=== PATIENT | male | born 1950 | race Caucasian/White ===

== ENCOUNTER 2022-08-20 19:21 | Inpatient (IN) | payer MEDICARE, OTHER ==
[2022-08-20] MEDS ORDERED: Aspirin Chewable 81 MG TAB ONE (20:00)
[2022-08-20] MEDS ORDERED: Furosemide 40 MG/4 ML VIAL ONE (20:00)
[2022-08-20] MEDS ORDERED: Diltiazem 125 MG/25 ML ONE (20:00)
[2022-08-20 20:23] LABS: #Basophils 0.1 thou/uL (0.0-0.2); #Eosinphils 0.2 thou/uL (0.0-0.7); #Lymphocytes 1.7 thou/uL (1.20-3.40); #Neutrophils 5.7 thou/uL (1.40-6.50); %Eosinophils 2.3 % (0.0-10.0); %Monocytes 11.9 % (0.0-10.0); %Neutrophils 65.9 % (42.0-75.0); Hemoglobin 15.5 g/dL (14.0-18.0); Mean Corpuscular HGB CONC 33.4 g/dL (32.0-36.0); Mean Corpuscular Hemoglobin 29.1 pg (27.0-31.0); Mean Corpuscular Volume 87.1 fl (78.0-98.0); Mean Platelet Volume 9.5 fL (7.4-10.4); Platelet Count 188 10x3/uL (130-400); RBC Distribution Width 13.5 % (11.5-14.5); Red Blood Cell (RBC) Count 5.34 mill/uL (4.70-6.10); White Blood Cell (WBC) Count 8.7 10x3/uL (4.8-10.8)
[2022-08-20 20:44] LABS: ALT (SGPT) 9 U/L (8-55); AST (SGOT) 15 U/L (5-34); Albumin 3.8 g/dL (3.4-4.8); Alkaline Phosphatase 76 U/L (40-110); Anion Gap 15 mmol/L (10-20); BUN (Urea Nitrogen) 28 mg/dL (8.4-25.7); Calc. Creatinine Clearance 0 mL/min (70-130); Calcium 9.5 mg/dL (7.8-10.44); Carbon Dioxide 20 mmol/L (23-31); Chloride 106 mmol/L (98-107); Estimated GFR 31; Globulin 3.4 g/dL (2.4-3.5); Glucose 251 mg/dL (80-115); Potassium 4.5 mmol/L (3.5-5.1); Protein, Total 7.2 g/dL (5.8-8.1); Sodium 136 mmol/L (136-145)
[2022-08-20] MEDS ORDERED: Digoxin 0.5 MG/2 ML AMP ONE (21:32)
[2022-08-20] MEDS ORDERED: Amiodarone 150 MG/3 ML VIAL ONE (22:17)
[2022-08-20 23:07] LABS: SARS-CoV-2 NAA Rapid Test Not Detected (NotDetected)
[2022-08-21] MEDS ORDERED: Electrolyte Replacement Protocol 1 EACH IVPB PRN (00:34)
[2022-08-21] MEDS ORDERED: Ondansetron ODT 4 MG TAB PO PRN (00:36)
[2022-08-21] MEDS ORDERED: Calcium Carbonate 500 MG ChewTAB PO PRN (00:36)
[2022-08-21 00:41] LABS: Troponin I 0.015 ng/mL (< 0.028)
[2022-08-21] MEDS ORDERED: Diltiazem 125 MG in Sodium Chloride 0.9% 100 ML IVPB SCH (00:45)
[2022-08-21 01:04] VITALS: BMI 26.2
[2022-08-21 02:51] LABS: Bacteria/HPF None Seen HPF (None Seen); Bilirubin Negative (Negative); Blood, Urine Negative (Negative); Clarity Clear (Clear); Glucose, Urine (Dipstick) 30 mg/dL (Negative); Ketone, Urine Negative (Negative); Leukocyte Negative Leu/uL (Negative); Nitrite Negative (Negative); Protein, Urine (Dipstick) 20 mg/dL (Neg-Trace); RBC/HPF 0-3 HPF (0-3); Specific Gravity, Urine 1.011 (1.002-1.036); Squamous Epithelial 0-3 HPF (0-3); Urobilinogen Normal mg/dL (Less than 2)
[2022-08-21 04:33] LABS: Anion Gap 17 mmol/L (10-20); BUN (Urea Nitrogen) 28 mg/dL (8.4-25.7); Calc. Creatinine Clearance 33 mL/min (70-130); Calcium 9.1 mg/dL (7.8-10.44); Carbon Dioxide 18 mmol/L (23-31); Chloride 105 mmol/L (98-107); Estimated GFR 30; Glucose 212 mg/dL (80-115); Potassium 4.8 mmol/L (3.5-5.1); Sodium 135 mmol/L (136-145)
[2022-08-21 04:38] LABS: Troponin I 0.019 ng/mL (< 0.028)
[2022-08-21] MEDS ORDERED: Furosemide 40 MG/4 ML VIAL SLOW IVP SCH (09:00)
[2022-08-21] MEDS ORDERED: HumaLOG 300 UNITS/3 ML VIAL SC PRN (10:00)
[2022-08-21] MEDS: Famotidine 20 MG TAB PO SCH (10:02)
[2022-08-21] MEDS: Apixaban 5 MG TAB PO SCH ×2 (10:02→10:34)
[2022-08-21] MEDS ORDERED: Dextrose 5% in Water 1,000 ML IV PRN (10:15)
[2022-08-21] MEDS ORDERED: Insulin Glargine 30 UNITS/0.3 ML VIAL SC SCH (10:15)
[2022-08-21] MEDS ORDERED: Dextrose 50% Abboject 50 ML SYRINGE IVP PRN (10:15)
[2022-08-21] MEDS: HumaLOG 300 UNITS/3 ML VIAL SC PRN (12:40)
[2022-08-21] MEDS ORDERED: Ketamine 50 MG/ML (10ML VIAL) ONE (16:03)
[2022-08-21] MEDS ORDERED: PROPOFOL 20 ML ONE (16:03)
[2022-08-21] MEDS ORDERED: PHENYLEPHRINE-NS 100 MCG/ML 10 ML SYRINGE ONE (16:15)
[2022-08-21] MEDS ORDERED: Lidocaine 1% PF 5 ML VIAL ONE (16:15)
[2022-08-21] MEDS ORDERED: ePHEDrine 50 MG/ML VIAL ONE (16:15)
[2022-08-21] MEDS ORDERED: PROPOFOL 200 MG/20 ML VIAL ONE (16:15)
[2022-08-21] MEDS ORDERED: NOREPINEPHRINE 8 MG/250 ML-D5W 250 ML IVPB SCH (17:00)
[2022-08-21] MEDS: Amiodarone 450 MG, Admixture Fee 1 EACH in Dextrose 5% in Water 250 ML IVPB SCH (19:44)
[2022-08-22] MEDS: HYDROcodone/Acetaminophen 5/325 mg Tablet PO PRN ×4 (00:25→21:17)
[2022-08-22] MEDS: HumaLOG 300 UNITS/3 ML VIAL SC PRN ×4 (00:30→17:00)
[2022-08-22] MEDS: Amiodarone 450 MG, Admixture Fee 1 EACH in Dextrose 5% in Water 250 ML IVPB SCH (04:10)
[2022-08-22 04:53] LABS: #Basophils 0.1 thou/uL (0.0-0.2); #Eosinphils 0.2 thou/uL (0.0-0.7); #Lymphocytes 1.3 thou/uL (1.20-3.40); #Monocytes 1.1 thou/uL (0.11-0.59); #Neutrophils 5.1 thou/uL (1.40-6.50); %Basophils 0.6 % (0.0-1.0); %Lymphocytes 17.2 % (21.0-51.0); %Monocytes 13.8 % (0.0-10.0); %Neutrophils 66.3 % (42.0-75.0); Hemoglobin 14.2 g/dL (14.0-18.0); Mean Corpuscular HGB CONC 32.5 g/dL (32.0-36.0); Mean Corpuscular Hemoglobin 29.4 pg (27.0-31.0); Mean Corpuscular Volume 90.4 fl (78.0-98.0); Mean Platelet Volume 9.4 fL (7.4-10.4); Platelet Count 147 10x3/uL (130-400); RBC Distribution Width 13.5 % (11.5-14.5); Red Blood Cell (RBC) Count 4.85 mill/uL (4.70-6.10); White Blood Cell (WBC) Count 7.8 10x3/uL (4.8-10.8)
[2022-08-22 04:54] LABS: ALT (SGPT) 7 U/L (8-55); AST (SGOT) 10 U/L (5-34); Albumin 3.2 g/dL (3.4-4.8); Alkaline Phosphatase 60 U/L (40-110); Anion Gap 13 mmol/L (10-20); BUN (Urea Nitrogen) 33 mg/dL (8.4-25.7); Bilirubin, Total 0.9 mg/dL (0.2-1.2); Calc. Creatinine Clearance 35 mL/min (70-130); Calcium 8.3 mg/dL (7.8-10.44); Carbon Dioxide 18 mmol/L (23-31); Chloride 106 mmol/L (98-107); Estimated GFR 33; Globulin 2.9 g/dL (2.4-3.5); Glucose 192 mg/dL (80-115); Potassium 4.3 mmol/L (3.5-5.1); Protein, Total 6.1 g/dL (5.8-8.1); Sodium 133 mmol/L (136-145)
[2022-08-22] MEDS: Amiodarone 200 MG TAB PO SCH ×2 (08:52→21:18)
[2022-08-22] MEDS: Famotidine 20 MG TAB PO SCH (08:53)
[2022-08-22 09:25] LABS: Magnesium 1.8 mg/dL (1.6-2.6)
[2022-08-22] MEDS ORDERED: Amiodarone 450 MG, Admixture Fee 1 EACH in Dextrose 5% in Water 250 ML IVPB SCH (09:45)
[2022-08-22] MEDS: Insulin Glargine 30 UNITS/0.3 ML VIAL SC SCH (09:49)
[2022-08-22] MEDS ORDERED: Magnesium 2 GM/50 ML(in water) 2 GM in Premix Bag 1 BAG IVPB SCH (10:00)
[2022-08-22] MEDS: Milrinone Lactate/D5W 20 MG in Premix Bag 1 BAG IV SCH (11:36)
[2022-08-22] MEDS: Furosemide 40 MG/4 ML VIAL SLOW IVP SCH (14:14)
[2022-08-22] MEDS: Atorvastatin Calcium 20 MG TAB PO SCH (21:19)
[2022-08-23] MEDS: Milrinone Lactate/D5W 20 MG in Premix Bag 1 BAG IV SCH ×3 (01:51→23:00)
[2022-08-23] MEDS: HYDROcodone/Acetaminophen 5/325 mg Tablet PO PRN ×2 (01:54→08:48)
[2022-08-23 04:56] LABS: Anion Gap 12 mmol/L (10-20); BUN (Urea Nitrogen) 34 mg/dL (8.4-25.7); Calc. Creatinine Clearance 39 mL/min (70-130); Calcium 8.4 mg/dL (7.8-10.44); Carbon Dioxide 20 mmol/L (23-31); Chloride 104 mmol/L (98-107); Estimated GFR 37; Glucose 143 mg/dL (80-115); Potassium 4.1 mmol/L (3.5-5.1); Sodium 132 mmol/L (136-145)
[2022-08-23] MEDS: Furosemide 40 MG/4 ML VIAL SLOW IVP SCH (06:07)
[2022-08-23] MEDS: Famotidine 20 MG TAB PO SCH (08:49)
[2022-08-23] MEDS: Amiodarone 200 MG TAB PO SCH ×2 (08:49→20:38)
[2022-08-23] MEDS: Insulin Glargine 30 UNITS/0.3 ML VIAL SC SCH (08:50)
[2022-08-23] MEDS ORDERED: Apixaban 5 MG TAB PO SCH (09:45)
[2022-08-23] MEDS ORDERED: Magnesium 2 GM/50 ML(in water) 2 GM in Premix Bag 1 BAG IVPB SCH (11:00)
[2022-08-23] MEDS: HumaLOG 300 UNITS/3 ML VIAL SC PRN (12:33)
[2022-08-23] MEDS: HYDROcodone/Acetaminophen 5/325 mg Tablet PO SCH ×2 (17:52→20:38)
[2022-08-23] MEDS: Cefepime 1 GM in Sodium Chloride 0.9% 100 ML IVPB SCH (17:52)
[2022-08-23] MEDS: Pregabalin 75 MG CAP PO SCH (20:37)
[2022-08-23] MEDS: Atorvastatin Calcium 20 MG TAB PO SCH (20:38)
[2022-08-23] MEDS: Apixaban 5 MG TAB PO SCH (20:38)
[2022-08-24] MEDS: HYDROcodone/Acetaminophen 5/325 mg Tablet PO SCH ×6 (00:55→22:13)
[2022-08-24 04:41] LABS: Anion Gap 12 mmol/L (10-20); BUN (Urea Nitrogen) 38 mg/dL (8.4-25.7); Calc. Creatinine Clearance 41 mL/min (70-130); Calcium 8.6 mg/dL (7.8-10.44); Carbon Dioxide 21 mmol/L (23-31); Chloride 103 mmol/L (98-107); Estimated GFR 39; Glucose 131 mg/dL (80-115); Potassium 3.8 mmol/L (3.5-5.1); Sodium 132 mmol/L (136-145)
[2022-08-24] MEDS: Cefepime 1 GM in Sodium Chloride 0.9% 100 ML IVPB SCH ×2 (06:07→17:10)
[2022-08-24] MEDS ORDERED: Magnesium 2 GM/50 ML(in water) 2 GM in Premix Bag 1 BAG IVPB SCH (08:00)
[2022-08-24] MEDS ORDERED: FLU VACC QS2022-23(65YR UP)/PF 240 MCG/0.7 ML SYRINGE IM ONE (09:00)
[2022-08-24] MEDS ORDERED: Furosemide 40 MG/4 ML VIAL SLOW IVP SCH (09:00)
[2022-08-24] MEDS ORDERED: Tamsulosin HCl 0.4 MG CAP PO SCH (09:00)
[2022-08-24] MEDS ORDERED: Bumetanide 1 MG TAB PO SCH (09:30)
[2022-08-24] MEDS: Pregabalin 75 MG CAP PO SCH ×2 (09:37→22:14)
[2022-08-24] MEDS: Famotidine 20 MG TAB PO SCH (09:37)
[2022-08-24] MEDS: Apixaban 5 MG TAB PO SCH ×2 (09:37→22:13)
[2022-08-24] MEDS: Amiodarone 200 MG TAB PO SCH ×2 (09:37→22:14)
[2022-08-24] MEDS: Insulin Glargine 30 UNITS/0.3 ML VIAL SC SCH (09:38)
[2022-08-24] MEDS: Milrinone Lactate/D5W 20 MG in Premix Bag 1 BAG IV SCH ×2 (09:40→17:10)
[2022-08-24] MEDS: HumaLOG 300 UNITS/3 ML VIAL SC PRN (12:25)
[2022-08-24] MEDS: Bumetanide 1 MG TAB PO SCH (17:06)
[2022-08-24] MEDS: Atorvastatin Calcium 20 MG TAB PO SCH (22:13)
[2022-08-25] MEDS: HYDROcodone/Acetaminophen 5/325 mg Tablet PO SCH ×6 (01:12→21:20)
[2022-08-25] MEDS: Milrinone Lactate/D5W 20 MG in Premix Bag 1 BAG IV SCH ×3 (01:15→21:19)
[2022-08-25 04:19] LABS: Hemoglobin 13.8 g/dL (14.0-18.0); Mean Corpuscular HGB CONC 33.3 g/dL (32.0-36.0); Mean Corpuscular Hemoglobin 28.8 pg (27.0-31.0); Mean Corpuscular Volume 86.5 fl (78.0-98.0); Mean Platelet Volume 9.8 fL (7.4-10.4); Platelet Count 151 10x3/uL (130-400); RBC Distribution Width 13.3 % (11.5-14.5); Red Blood Cell (RBC) Count 4.79 mill/uL (4.70-6.10); White Blood Cell (WBC) Count 7.2 10x3/uL (4.8-10.8)
[2022-08-25 04:35] LABS: Anion Gap 13 mmol/L (10-20); BUN (Urea Nitrogen) 32 mg/dL (8.4-25.7); Calc. Creatinine Clearance 42 mL/min (70-130); Calcium 8.6 mg/dL (7.8-10.44); Carbon Dioxide 22 mmol/L (23-31); Chloride 102 mmol/L (98-107); Estimated GFR 40; Glucose 125 mg/dL (80-115); Potassium 3.5 mmol/L (3.5-5.1); Sodium 133 mmol/L (136-145)
[2022-08-25 04:47] LABS: Eosinophils 3 % (0-10); Lymphocytes 31 % (21-51); MDiff Complete? YES; Monocytes 8 % (0-10); Neutrophil 58 % (42-75)
[2022-08-25] MEDS: Cefepime 1 GM in Sodium Chloride 0.9% 100 ML IVPB SCH (05:35)
[2022-08-25] MEDS ORDERED: Potassium Chloride 20 MEQ TAB PO SCH (08:00)
[2022-08-25] MEDS ORDERED: Magnesium 2 GM/50 ML(in water) 2 GM in Premix Bag 1 BAG IVPB SCH (09:00)
[2022-08-25] MEDS: Apixaban 5 MG TAB PO SCH ×2 (09:19→21:19)
[2022-08-25] MEDS: Insulin Glargine 30 UNITS/0.3 ML VIAL SC SCH (09:19)
[2022-08-25] MEDS: Famotidine 20 MG TAB PO SCH (09:19)
[2022-08-25] MEDS: Bumetanide 1 MG TAB PO SCH ×2 (09:19→16:35)
[2022-08-25] MEDS: Amiodarone 200 MG TAB PO SCH ×2 (09:19→21:19)
[2022-08-25] MEDS: Pregabalin 75 MG CAP PO SCH ×2 (09:22→21:19)
[2022-08-25] MEDS: HumaLOG 300 UNITS/3 ML VIAL SC PRN (12:28)
[2022-08-25 14:16] LABS: Potassium 4.2 mmol/L (3.5-5.1)
[2022-08-25] MEDS ORDERED: cefTRIAXone\\ROCEPHIN 2 GM in Sodium Chloride 0.9% 100 ML IVPB SCH (17:00)
[2022-08-25] MEDS: Atorvastatin Calcium 20 MG TAB PO SCH (21:19)
[2022-08-26] MEDS: HYDROcodone/Acetaminophen 5/325 mg Tablet PO SCH ×4 (01:52→14:34)
[2022-08-26 05:11] LABS: Hemoglobin 13.9 g/dL (14.0-18.0); Mean Corpuscular HGB CONC 32.9 g/dL (32.0-36.0); Mean Corpuscular Hemoglobin 28.6 pg (27.0-31.0); Mean Corpuscular Volume 86.7 fl (78.0-98.0); Mean Platelet Volume 9.4 fL (7.4-10.4); Platelet Count 171 10x3/uL (130-400); RBC Distribution Width 13.4 % (11.5-14.5); Red Blood Cell (RBC) Count 4.88 mill/uL (4.70-6.10); White Blood Cell (WBC) Count 7.3 10x3/uL (4.8-10.8)
[2022-08-26 05:28] LABS: Anion Gap 15 mmol/L (10-20); BUN (Urea Nitrogen) 31 mg/dL (8.4-25.7); Calc. Creatinine Clearance 43 mL/min (70-130); Calcium 8.9 mg/dL (7.8-10.44); Carbon Dioxide 24 mmol/L (23-31); Chloride 103 mmol/L (98-107); Estimated GFR 42; Glucose 129 mg/dL (80-115); Magnesium 1.8 mg/dL (1.6-2.6); Potassium 3.9 mmol/L (3.5-5.1); Sodium 138 mmol/L (136-145)
[2022-08-26] MEDS: Milrinone Lactate/D5W 20 MG in Premix Bag 1 BAG IV SCH ×2 (05:45→14:35)
[2022-08-26 06:26] LABS: Crenated RBC SLIGHT = 1-5 cells (100X) (None Seen); Eosinophils 3 % (0-10); Lymphocytes 30 % (21-51); MDiff Complete? YES; Monocytes 12 % (0-10); Neutrophil 54 % (42-75); Ovalocytes SLIGHT = 2-5 cells (100X) (0-1/hpf); Platelet Clumps MODERATE; Platelet Morphology Comment Appears Adequate
[2022-08-26] MEDS ORDERED: Magnesium 2 GM/50 ML(in water) 2 GM in Premix Bag 1 BAG IVPB SCH (08:00)
[2022-08-26 11:10] LABS: SARS-CoV-2 NAA Rapid Test Not Detected (NotDetected)
[2022-08-26 11:12] VITALS: BP 144/76; TEMP 98
[2022-08-26] MEDS: Famotidine 20 MG TAB PO SCH (11:34)
[2022-08-26] MEDS: Amiodarone 200 MG TAB PO SCH (11:35)
[2022-08-26] MEDS: Pregabalin 75 MG CAP PO SCH (11:35)
[2022-08-26] MEDS: Bumetanide 1 MG TAB PO SCH (11:35)
[2022-08-26] MEDS: Apixaban 5 MG TAB PO SCH (11:35)
[2022-08-26] MEDS: Insulin Glargine 30 UNITS/0.3 ML VIAL SC SCH (11:38)
[2022-08-26] MEDS: HumaLOG 300 UNITS/3 ML VIAL SC PRN (11:39)
== END 2022-08-26 15:16 | disposition short-term general hospital (02) | DRG 291 ==
LOC: ERS 19:21 → CCU 23:20 → 2NO 08-22 13:39
PROVIDERS: ADMIT Student in an Organized Health Care Education/Training Program; ATTEND Hospitalist
PROC: B24BZZ4 Ultrasonography of Heart with Aorta, Transesophageal (ICD-10-PCS; principal; 2022-08-21)
PROC: 5A2204Z Restoration of Cardiac Rhythm, Single (ICD-10-PCS; 2022-08-21)
DX: I11.0 Hypertensive heart disease with heart failure (principal); I50.21 Acute systolic (congestive) heart failure; N17.9 Acute kidney failure, unspecified; E87.1 Hypo-osmolality and hyponatremia; T80.1XXA Vascular complications following infusion, transfusion and therapeutic injection, initial encounter; I80.8 Phlebitis and thrombophlebitis of other sites; Z20.822 Contact with and (suspected) exposure to COVID-19; I42.8 Other cardiomyopathies; N40.0 Benign prostatic hyperplasia without lower urinary tract symptoms; I48.0 Paroxysmal atrial fibrillation; I08.1 Rheumatic disorders of both mitral and tricuspid valves; E11.51 Type 2 diabetes mellitus with diabetic peripheral angiopathy without gangrene; Z79.51 Long term (current) use of inhaled steroids; Z79.899 Other long term (current) drug therapy; Z79.84 Long term (current) use of oral hypoglycemic drugs
CPT/HCPCS: 36415; 36416; 71045; 76770; 80048; 80053; 81001; 83735; 83880; 84443; 84484; 85025; 85652; 86140; 93005; 93306; 93312; 93923; 96365; 96366; 96372; 96375; 96376; J0282; J0692; J0696; J1160; J1650; J1815; J1940; J2260; J2704; J3475; J3490; J7070; U0002